=== PATIENT | female | born 2000 | race Caucasian/White ===

== ENCOUNTER 2024-02-05 05:31 | Emergency (ER) | payer MEDICAID ==
[~2024-02-05] VITALS: Ht 160 cm; Wt 59.0 kg
[2024-02-05 05:56] VITALS: BP_SYST 112; PULSE 55; RESP 17; TEMP 97.7; O2SAT 97
[2024-02-05] MEDS ORDERED: PRED20TA PO (06:35)
[2024-02-05] MEDS ORDERED: CLOT15CR5 TP (06:35)
[2024-02-05 06:40] VITALS: BP_SYST 112; PULSE 55; RESP 17; TEMP 97.7; O2SAT 97
== END 2024-02-05 06:40 | disposition home or self-care (01) ==
LOC: SED 05:31
DX: L30.9 Dermatitis, unspecified (principal); R21 Rash and other nonspecific skin eruption; Z88.6 Allergy status to analgesic agent; Z88.0 Allergy status to penicillin
CPT/HCPCS: 99283